=== PATIENT | female | born 1995 | race Caucasian/White ===

== ENCOUNTER 2021-09-22 21:28 | Emergency (ER) | payer MEDICAID, SELFPAY ==
[2021-09-22 21:33] VITALS: BP 122/85; PULSE 116; RESP 18; TEMP 36.7; O2SAT 97; BMI 27.3
[2021-09-22 21:59] LABS: Strep A Nucleic Acid Negative (Negative)
[2021-09-22 22:13] LABS: COVID-19 Test Negative (Negative); IDNOW Serial# 55D5AD1C
[2021-09-22 22:14] LABS: Influenza A Negative (Negative); Influenza B2 Negative (Negative)
--- NOTE | 2021-09-22 23:19 | ED_ITS ---
HPI - General Adult General Chief complaint: General Medical Stated complaint: fever, sore throat,body aches,diarrhea Time Seen by Provider: 09/22/21 21:34 Source: patient Mode of arrival: ambulatory Limitations: no limitations History of Present Illness HPI narrative: 25 yo female here with sore throat x 3 days with subjective fevers. No cough, difficulty breathing. Able to tolerate liquids but food is difficult Related Data Previous Rx's Medication Instructions Recorded doxycycline monohydrate 100 mg 100 mg PO BID #20 cap 09/23/21 capsule prednisone 20 mg tablet 40 mg PO DAILY #10 tab 09/23/21 Allergies Allergy/AdvReac Type Severity Reaction Status Date / Time No Known Allergies Allergy Unverified 01/18/20 19:04 [No Known Allergies*] Review of Systems Review of Systems: Yes all other systems are reviewed and are negative Constitutional: Constitutional: Reports no additional constitutional complaints, Denies body ache(s), Denies chills, Reports fever(s), Denies headache(s) and Denies weakness Eyes: Eyes: Reports no additional eye complaints and Denies change in vision ENT: Reports system reviewed and no additional complaints, except as documented, Denies dizziness, Denies headache(s), Denies nasal congestion, Denies nasal discharge, Denies neck pain and Reports sore throat Cardiovascular: Cardiovascular: Reports no additional cardiovascular complaints, Denies chest pain, Denies leg edema and Denies dyspnea Respiratory: Respiratory: Reports no additional respiratory complaints, Denies cough and Denies dyspnea Gastrointestinal: Gastrointestinal: Reports no additional gastrointestinal complaints, Denies abdominal pain, Denies diarrhea, Denies nausea and Denies vomiting Genitourinary: Genitourinary: Reports no additional female genitourinary complaints and Denies urinary incontinence Musculoskeletal: Musculoskeletal: Reports no additional musculoskeletal complaints, Denies back pain, Denies arthralgias, Denies joint swelling, Denies neck pain, Denies numbness and Denies tingling Integumentary/Breasts: Skin/Breast: Reports system reviewed and no additional complaints, except as docu and Denies rash Neurologic: Reports system reviewed and no additional complaints, except as documented, Denies dizziness, Denies headache(s), Denies numbness, Denies tingling and Denies weakness PMF Past Medical History Attestation statement: The following information was validated with the patient. Source: old records reviewed and nursing notes reviewed Social History Social History Advance Directives: No Physical Exam ED Vital Signs: Vital Signs - 24 hr 09/22/21 21:33 Temperature 98.0 F Pulse Rate 116 H Respiratory Rate 18 Blood Pressure 122/85 Pulse Oximetry 97 BMI result Body Mass Index 27.3 Const General: cooperative, healthy appearing, comfortable and no acute distress Orientation/consciousness: patient oriented x3 Limitations: no limitations HENMT Head: Yes normal to inspection Ears: hearing grossly normal bilaterally and TM's normal bilaterally General nose exam: Normal external nose present Face and sinus: Yes normal facial exam Mouth: Normal oral and palatal mucosa present Teeth and gingiva: dentition normal Throat: Yes uvula midline and Yes abnormal tonsil (bilateral tonsillar erythema/exudate/swelling) Eyes General: appearance normal, both eyes and all related structures Pupils: Equal, round and reactive pupils present Neck Neck: Yes normal visual inspection, Yes full ROM, Yes no lymphadenopathy and Yes no meningeal signs Chest Chest palpation & inspection: normal inspection of the chest Resp Effort & Inspection: normal respiratory effort Auscultation: clear to auscultation bilaterally Cardio Rate: regular rate Rhythm: regular rhythm Peripheral pulses: Peripheral pulses 2+ throughout GI Inspection: Yes normal to inspection Palpation (GI): Soft to palpation and nontender General: Yes no CVA tenderness Back/Spine/Pelvis Back: no CVA tenderness Skin General skin exam: no rashes or lesions noted Neuro General: patient oriented x3 and no meningeal signs Cranial nerves: Yes Equal, round and reactive pupils present Cognition (Neuro): normal cognition Gait exam (Neuro): Normal gait present Extrem General: Yes normal to inspection Course Course Course Narrative: 25 yo female here with sore throat/fever x3 days. On exam patient has bilateral tonsillar erythema with exudate and swelling. Testing for COVID, flu, strep were negative. Will send mono testing. Patient be given Motrin and Decadron Reevaluation(s) Reevaluation #1: Rapid mono is negative. Will send throat culture. Will also send culture for gonorrhea and chlamydia. Patient will be treated prophylactically with ceftriax one 500 mg IM and sent home with doxycycline for 10 days. Will also give prednisone for swelling. Patient is tolerating liquids with no difficulty. Reviewed worrisome signs and symptoms of when to return to the emergency department. Comfortable discharge home. Medical Decision Making MDM Narrative Medical decision making narrative: Strep pharyngitis, mono, gonorrhea tonsillitis Medical Records Medical records reviewed: Yes I reviewed the patient's medical records. Lab Data Lab results reviewed: Yes I reviewed the patient's lab results. Labs: Lab Results 09/22/21 09/22/21 09/22/21 Range/Units 21:40 21:40 21:40 COVID-19 ([facility]) Negative (Negative) COVID-19 Clin Com See Note Monoscreen (Negative) Influenza Type A ([facility]) Negative (Negative) Influenza Type B ([facility]) Negative (Negative) Influenza A & B Note See Note S. pyogenes GrpA [facility] Negative (Negative) 09/22/21 Range/Units 23:59 COVID-19 ([facility]) (Negative) COVID-19 Clin Com Monoscreen Negative (Negative) Influenza Type A ([facility]) (Negative) Influenza Type B ([facility]) (Negative) Influenza A & B Note S. pyogenes GrpA [facility] (Negative) Discharge Plan Discharge Clinical Impression: Acute tonsillitis Patient Disposition: Home, Self-Care Instructions: Tonsillitis (ED) Additional Instructions: [place], rapid strep, covid, flu testing are negative We sent cultures and are treating your prophylactically with antibiotics. You will be called with results if positive in a few days Salt water gargles Motrin or tylenol for pain or fever Prescriptions: New doxycycline monohydrate 100 mg capsule 100 mg PO BID Qty: 20 0RF prednisone 20 mg tablet 40 mg PO DAILY Qty: 10 0RF Referrals: Physician,None [Primary Care Provider] - Stand Alone Forms: Work/School Release
[2021-09-23] MEDS: dexAMETHasone sod phosphate 10 MG/ML VIAL IVPUSH (00:05)
[2021-09-23] MEDS: Ibuprofen Oral Susp 200 MG/10 ML ORAL.SUSP 600 MG PO (00:05)
[2021-09-23 00:20] LABS: Monotest Negative (Negative)
[2021-09-23] MEDS: cefTRIAXone sodium 500 MG, Lidocaine HCl 1 % MPF 1 ML IM (00:56)
[2021-09-23 01:01] VITALS: BP 110/77; PULSE 100; RESP 17; TEMP 37.2; O2SAT 98
[2021-09-26 16:52] LABS: C. Trachomatis RNA TMA, Throat NOT DETECTED (NOT DETECTED); N. gonorrhoeae RNA TMA, Throat NOT DETECTED (NOT DETECTED)
== END 2021-09-23 01:04 | disposition home or self-care (01) ==
LOC: HO.ED 09-23 00:37
PROVIDERS: Emergency Medicine; Nurse Practitioner Family; Emergency Provider Emergency Medicine
DX: J03.90 Acute tonsillitis, unspecified (principal); Z20.822 Contact with and (suspected) exposure to COVID-19
CPT/HCPCS: 36415; 86308; 87071; 87147; 87491; 87502; 87591; 87635; 87651; 96372; 96374; 99283; 99284; J0696; J1100

== ENCOUNTER 2021-09-24 14:06 | Inpatient (IN) | payer MEDICAID, SELFPAY ==
--- NOTE | ~2021-09-24 | XR_ITS ---
EXAMINATION: XR CHEST CLINICAL INFORMATION: Hemoptysis; question pneumonia. COMPARISON: None TECHNIQUE: AP view of the chest was obtained. FINDINGS: No significant abnormality is noted involving the heart, lungs, mediastinum, bony thorax or soft tissues. XR/XR chest 1V IMPRESSION: Unremarkable examination.
--- NOTE | ~2021-09-24 | CT_ITS ---
EXAMINATION: CT SOFT TISSUE NECK WITHOUT CONTRAST CLINICAL INFORMATION: 25-year-old female with sore throat evaluate for peritonsillar abscess COMPARISON: None TECHNIQUE: Helical imaging was performed in the axial plane with generation of coronal and sagittal reformatted images. This CT examination was performed using dose optimization techniques as appropriate, variously including the following: *Automated exposure control *Adjustment of mA and/or kV according to patient size (this includes techniques or standardized protocols for targeted exams where dose is matched to indication/reason for exam; i.e. extremities or head) *Use of iterative reconstruction technique DLP: 325 mGy-cm FINDINGS: The bilateral neck lymphadenopathy is seen. There is palatine tonsillitis with very prominent left more than right tonsil measured approximately 4.6 x 3.9 cm of heterogeneous attenuation but due to the noncontrast technique small abscesses could not be excluded. There is deviation and narrowing of airways toward the right with midline shift. Right palatine tonsil is mildly prominent. The parotid glands are homogeneous in attenuation. The submandibular glands are normal. No contour abnormality or pathologic enhancement is seen within the oral cavity or pharyngeal mucosal space. The laryngeal structures are normal. The parapharyngeal fat is preserved. The carotid sheath vasculature opacify normally. No extra mucosal soft tissue mass or fluid collection is seen. No retropharyngeal fluid collection is seen. The thyroid gland is normal. The superior mediastinum is unremarkable. The lung apices are clear. The mastoid air cells and visualized portions of the paranasal sinuses are well-aerated. The temporomandibular joints are normal. No periapical disease is identified. No osseous abnormalities are seen. The imaged portions of the brain parenchyma are unremarkable. CT/CT soft tissue neck wo con IMPRESSION: A symmetrical tonsillitis with left tonsil significantly enlarged and heterogeneous. No obvious abscesses are visualized. Deviation of the airways and obliteration of the left side of the airways at the level of condyle. Neck lymphadenopathy.
--- NOTE | ~2021-09-24 | NM_ITS ---
EXAMINATION: PULMONARY PERFUSION STUDY CLINICAL INFORMATION: Elevated d-dimer. Coughing blood. Pulmonary embolism. COMPARISON: Chest radiograph from 09/24/2021. CT neck from 09/25/2019. TECHNIQUE: The patient received 2.9 mCi Tc-99m MAA intravenously and a 8-view perfusion study was performed. FINDINGS: Ventilation Images: Not obtained. Perfusion Images: No segmental perfusion defects are present. There is homogeneous distribution of activity bilaterally. There are no focal anatomic appearing perfusion defects present. NM/NM pul perfusion IMPRESSION: Normal radionuclide lung perfusion scan.
[2021-09-24 15:27] VITALS: BP 108/57; PULSE 110; RESP 18; TEMP 36.6; O2SAT 99; BMI 24.2
[2021-09-24 16:35] LABS: Basophils Absolute Auto 0.1 X10*3/uL (0.0-0.2); Basophils Percent Auto 0.4 % (0-2); Eosinophils Percent Auto 0.1 % (0-4); Hematocrit 45.7 % (37.0-47.0); Hemoglobin 15.3 g/dl (12.0-16.0); Imm Gran Pct Auto 1.1 % (0.0-0.4); Lymphocytes Absolute Auto 1.4 X10*3/uL (1.2-4.9); Lymphocytes Percent Auto 7.4 % (20-40); MANUAL DIFF FLAG SCAN; Mean Corpuscular HGB Conc 33.5 g/dl (31.0-35.0); Mean Corpuscular Hemoglobin 30.6 pg (27.0-33.0); Mean Corpuscular Volume 91.4 fL (80.0-98.0); Mean Platelet Volume 12.2 fL (9.4-12.3); Monocytes Absolute Auto 1.8 X10*3/uL (0.1-1.2); Monocytes Percent Auto 9.7 % (2-11); Neutrophils Absolute Auto 15.2 x10*3/uL (2.0-8.3); Neutrophils Percent Auto 81.3 % (45-73); Platelet Count 242 X10*3/uL (160-400); SCAN SMEAR FLAG 1; White Blood Count 18.7 X10*3/uL (4.8-10.8)
[2021-09-24 16:47] LABS: Alanine Aminotransferase 12 U/L (0-31); Albumin Level 4.4 g/dL (3.5-5.0); Alkaline Phosphatase 78 U/L (39-117); Anion Gap 16 (12-20); Aspartate Amino Transferase 13 U/L (5-31); Bilirubin Total 0.8 mg/dL (0.0-1.0); Blood Urea Nitrogen 16 mg/dL (9-16); Calcium 9.5 mg/dL (8.4-10.2); Carbon Dioxide 29 mmol/L (22-29); Chloride 97 mmol/L (96-108); Creatinine Clr Calc Pharmacy 71.7; Estimated Glomerular Filt Rate > 60; Glucose Random 97 mg/dL (60-115); Magnesium 2.2 mg/dL (1.6-2.6); Sodium 138 mmol/L (135-145); Total Protein 8.3 g/dL (6.5-8.0)
[2021-09-24 16:53] LABS: HCG Quantitative < 2 mIU/mL
[2021-09-24 17:02] LABS: SLIDE REVIEW VERIFIED
[2021-09-24 18:42] VITALS: BP 113/68; PULSE 104; RESP 17; TEMP 37.3; O2SAT 100
[2021-09-24 18:45] LABS: INTERNATIONAL NORM RATIO 1.3 (0.9-1.1); Prothrombin Time 14.4 SEC (9.9-13.0)
[2021-09-24 18:48] LABS: D Dimer High Sensitivity 480 NG/ML; Partial Thromboplastin Time 27.5 SEC (24.1-38.0)
[2021-09-24] MEDS: Ibuprofen Oral Susp 200 MG/10 ML ORAL.SUSP 600 MG PO (18:53)
[2021-09-24] MEDS: dexAMETHasone sod phosphate 10 MG/ML VIAL IVPUSH (18:53)
--- NOTE | 2021-09-24 18:58 | ED_ITS ---
HPI - General Adult General Chief complaint: General Medical Stated complaint: spitting up blood Time Seen by Provider: 09/24/21 15:31 Source: patient Mode of arrival: ambulatory Limitations: no limitations History of Present Illness HPI narrative: 25-year-old female presents to the ED for sore throat and coughing up blood. Patient was seen here yesterday for sore throat had negative strep, mono spot, COVID and influenza. Patient is chlamydia and gonorrhea pending. Patient denies any chest pain or shortness of breath. Related Data Previous Rx's Medication Instructions Recorded doxycycline monohydrate 100 mg 100 mg PO BID #20 cap 09/23/21 capsule prednisone 20 mg tablet 40 mg PO DAILY #10 tab 09/23/21 doxycycline monohydrate 25 mg/5 mL 10 ml PO BID 10 Days #200 ml 09/24/21 oral suspension prednisone 5 mg/5 mL oral solution 40 mg (40 mL) PO ONCE 5 Days #200 09/24/21 ml Allergies Allergy/AdvReac Type Severity Reaction Status Date / Time No Known Allergies Allergy Verified 09/24/21 15:26 [No Known Allergies*] Review of Systems Review of Systems: Sore throat. Coughing up blood Yes all other systems are reviewed and are negative PMFSH Social History Social History Advance Directives: No Advance Directives Information Provided: No Physical Exam ED Vital Signs: Vital Signs - 24 hr 09/24/21 15:27 09/24/21 18:42 09/24/21 21:08 Temperature 97.9 F 99.2 F 97.2 F Pulse Rate 110 H 104 H 84 Respiratory Rate 18 17 15 Blood Pressure 108/57 L 113/68 95/59 L Pulse Oximetry 99 100 99 09/24/21 21:42 Temperature Pulse Rate Respiratory Rate 16 Blood Pressure Pulse Oximetry BMI result Body Mass Index 24.2 Const General: cooperative, healthy appearing, comfortable, no acute distress, well developed, alert, awake and Physically active Orientation/consciousness: oriented to time and patient oriented x3 HENMT Head: Yes normal to inspection, Yes No palpable skull fracture present, Yes normocephalic, Yes atraumatic and No abrasion Ears: hearing grossly normal bilaterally, external ears normal, TM's normal bilaterally, TM normal on the right, TM normal on the left, EAC's normal, mastoids normal and no periauricular adenopathy Teeth image: 1. Erythematous and mild swelling of soft palate swelling. left tonsill larger than right tonsil. Throat: Yes uvula midline and Yes abnormal tonsil (Erythematous. Negative for signs of peritonsillar abscess) Eyes General: appearance normal, both eyes and all related structures Neck Neck: Yes normal visual inspection, Yes full ROM, Yes no lymphadenopathy, Yes no meningeal signs, Yes trachea midline, Yes supple, No anterior neck swelling and No tender Chest Chest palpation & inspection: normal inspection of the chest and normal palpation of entire chest wall Resp Effort & Inspection: normal respiratory effort and able to speak in complete sentences Auscultation: clear to auscultation bilaterally Cardio Jugular venous distension: no JVD Heart sounds: S1 normal heart sound present and S2 normal heart sound present GI Inspection: Yes normal to inspection and No abdominal wall ecchymosis Palpation (GI): Soft to palpation, not firm, nontender, no guarding and not rigid General: No CVA tenderness and Yes no CVA tenderness Back/Spine/Pelvis Back: no CVA tenderness, No CVA tenderness and No back tenderness Skin General skin exam: no rashes or lesions noted and elasticity normal Neuro General: oriented to time, patient oriented x3, gait normal, no meningeal signs and CN's II-XI intact bilaterally Cranial nerves: Yes CN's II-XII intact bilaterally Extrem General: Yes normal to inspection and Yes full ROM Psych Appearance: grossly normal, well kempt and not disheveled Course Course Course Narrative: Labs ordered. Due to coughing up blood D-dimer sent. Patient not able to talk and there is drooling. Reevaluation(s) Reevaluation #1: Due to IV contrast shortage hospital's policy presently is to do CT scans without any IV contrast. Soft tissue neck CT dry scan ordered to check for peritonsillar abscess or retropharyngeal abscess although very unlikely due to patient not having any signs of A[employer]LYT[employer] CHEMIST or submandibular swelling or shortness of breath. White blood cell count 18,000 an elevated D-dimer. Decadron ordered. Chest x-ray ordered Time: 19:05 Reevaluation #2: CT scan of neck negative for any obvious peritonsillar abscess, but shows airway narrowing with midline shift. Patient was re-evaluated and now able to speak in full sentencess, feels better, and no longer drooling. Vq scan negative for PE. Spoke with [facility] ENT Freda and he was informed of patient's history, physical exam, labs, and CT scan reading. He states patient presently does not need transfer and can be admitted [place] [facility] [place] observation of 1 to 2 days of IV antibiotics and decadron if worsenns he than recommend transfer. Hospitalist Amanda agree for admission. Antibiotics ordered Time: 23:16 Medical Decision Making MDM Narrative Medical decision making narrative: Tonsillitis Lab Data Result diagrams: 09/24/21 16:18 09/24/21 16:18 Labs: Lab Results 09/24/21 09/24/21 09/24/21 Range/Units 16:18 16:18 18:24 WBC 18.7 H (4.8-10.8) X10*3/uL RBC 5.00 (4.20-5.50) X10*6/uL Hgb 15.3 (12.0-16.0) g/dl Hct 45.7 (37.0-47.0) % MCV 91.4 (80.0-98.0) fL MCH 30.6 (27.0-33.0) pg MCHC 33.5 (31.0-35.0) g/dl RDW 13.0 (11.0-16.0) % Plt Count 242 (160-400) X10*3/uL MPV 12.2 (9.4-12.3) fL Immature Gran % (Auto) 1.1 H (0.0-0.4) % Neut % (Auto) 81.3 H (45-73) % Lymph % (Auto) 7.4 L (20-40) % [place] % (Auto) 9.7 (2-11) % Eos % (Auto) 0.1 (0-4) % Baso % (Auto) 0.4 (0-2) % Lymph # (Auto) 1.4 (1.2-4.9) X10*3/uL [place] # (Auto) 1.8 H (0.1-1.2) X10*3/uL Eos # (Auto) 0.0 (0.0-0.4) X10*3/uL Baso # (Auto) 0.1 (0.0-0.2) X10*3/uL Abs Immat Gran (auto) 0.20 H (0.00-0.03) X10*3/uL Absolute Neuts (auto) 15.2 H (2.0-8.3) x10*3/uL Absolute Nucleated RBC 0.000 (0.0-0.012) X10*3/uL Nucleated RBC % (auto) 0.0 (0.0-0.2) /100WBC Smear Tech's Comments VERIFIED PT 14.4 H (9.9-13.0) SEC INR 1.3 H (0.9-1.1) APTT 27.5 (24.1-38.0) SEC D-Dimer High Sensitivty 480 NG/ML Sodium 138 (135-145) mmol/L Potassium 4.0 (3.3-5.1) mmol/L Chloride 97 (96-108) mmol/L Carbon Dioxide 29 (22-29) mmol/L Anion Gap 16 (12-20) BUN 16 (9-16) mg/dL Creatinine 0.95 (0.5-1.4) mg/dL Estim Creat Clear Calc 71.7 Estimated GFR > 60 Random Glucose 97 (60-115) mg/dL Lactic Acid (0.5-2.0) mmol/L Calcium 9.5 (8.4-10.2) mg/dL Magnesium 2.2 (1.6-2.6) mg/dL Total Bilirubin 0.8 (0.0-1.0) mg/dL AST 13 (5-31) U/L ALT 12 (0-31) U/L Alkaline Phosphatase 78 (39-117) U/L Total Protein 8.3 H (6.5-8.0) g/dL Albumin 4.4 (3.5-5.0) g/dL Beta HCG, Quant < 2 mIU/mL 09/24/21 Range/Units 21:56 WBC (4.8-10.8) X10*3/uL RBC (4.20-5.50) X10*6/uL Hgb (12.0-16.0) g/dl Hct (37.0-47.0) % MCV (80.0-98.0) fL MCH (27.0-33.0) pg MCHC (31.0-35.0) g/dl RDW (11.0-16.0) % Plt Count (160-400) X10*3/uL MPV (9.4-12.3) fL Immature Gran % (Auto) (0.0-0.4) % Neut % (Auto) (45-73) % Lymph % (Auto) (20-40) % [place] % (Auto) (2-11) % Eos % (Auto) (0-4) % Baso % (Auto) (0-2) % Lymph # (Auto) (1.2-4.9) X10*3/uL [place] # (Auto) (0.1-1.2) X10*3/uL Eos # (Auto) (0.0-0.4) X10*3/uL Baso # (Auto) (0.0-0.2) X10*3/uL Abs Immat Gran (auto) (0.00-0.03) X10*3/uL Absolute Neuts (auto) (2.0-8.3) x10*3/uL Absolute Nucleated RBC (0.0-0.012) X10*3/uL Nucleated RBC % (auto) (0.0-0.2) /100WBC Smear Tech's Comments PT (9.9-13.0) SEC INR (0.9-1.1) APTT (24.1-38.0) SEC D-Dimer High Sensitivty NG/ML Sodium (135-145) mmol/L Potassium (3.3-5.1) mmol/L Chloride (96-108) mmol/L Carbon Dioxide (22-29) mmol/L Anion Gap (12-20) BUN (9-16) mg/dL Creatinine (0.5-1.4) mg/dL Estim Creat Clear Calc Estimated GFR Random Glucose (60-115) mg/dL Lactic Acid 0.7 (0.5-2.0) mmol/L Calcium (8.4-10.2) mg/dL Magnesium (1.6-2.6) mg/dL Total Bilirubin (0.0-1.0) mg/dL AST (5-31) U/L ALT (0-31) U/L Alkaline Phosphatase (39-117) U/L Total Protein (6.5-8.0) g/dL Albumin (3.5-5.0) g/dL Beta HCG, Quant mIU/mL Discharge Plan Discharge Clinical Impression: Tonsillitis Patient Disposition: Admitted As Inpatient
[2021-09-24 21:08] VITALS: BP 95/59; PULSE 84; RESP 15; TEMP 36.2; O2SAT 99
[2021-09-24 21:42] VITALS: RESP 16
[2021-09-24] MEDS: cefTRIAXone sodium 1 GM in 0.9 % Sodium Chloride 50 ML IV (21:42)
[2021-09-24 22:10] LABS: Lactic Acid 0.7 mmol/L (0.5-2.0)
[2021-09-24] MEDS: 0.9 % Sodium Chloride 1,000 ML 999 ML IV ×2 (22:14→22:15)
--- NOTE | 2021-09-24 22:54 | PM.IMHP ---
History of Present Illness Date of Service: 09/24/21 Chief Complaint: Thorat pain 25-year-old female with no significant past medical history presented to the hospital with a chief complaint of sore throat, difficulty speaking, coughing of streaks of blood. Patient reports that symptoms have been going on for the past few days; today she went to the clinic and had negative strep throat, negative Monospot, negative influenza and COVID-19. Chlamydia and gonorrhea pending. Patient denies any shortness of breath. Patient reports that her symptoms have been gradually worsening; have throat pain and difficulty speaking. Denies any nausea vomiting Denies any cough or sputum production. Review of all other systems is negative except mentioned above ER course: Per ER team patient breathing comfortably; utilize midline; tonsils are erythematous; given ceftriaxone; discussed with ENT at [facility]- mentioned patient can be admitted to [facility] and to continue antibiotics and steroids, if no improvement to consider transfer later. FORMERLY [facility], [facility] Social History Advance Directives: No Advance Directives Information Provided: No Meds Allergies Allergy/AdvReac Type Severity Reaction Status Date / Time No Known Allergies Allergy Verified 09/24/21 15:26 [No Known Allergies*] Active Medications: Current Medications Enoxaparin Sodium (Enoxaparin Sodium 40 Mg/0.4 Ml Syringe) 40 mg SUBCUT Q24H RADHA Sodium Chloride (0.9 % Sodium Chloride Flush 3 Ml Syringe) 3 ml IVFLUSH QSHIFT [facility] Physical Exam Vital Signs and Narrative: Vital Signs: Last Vital Signs Temp 97.2 F 09/24/21 21:08 Pulse 84 09/24/21 21:08 Resp 16 09/24/21 21:42 BP 95/59 L 09/24/21 21:08 Pulse Ox 99 09/24/21 21:08 BMI result Body Mass Index 24.2 Gen: Appears be in no acute distress HEENT: NCAT, Moist mucosa. No stridor; tonsils enlarged; hyperemia chemicals over the tonsils. Pulmonary: Vesicular breath sounds, fair air entry CVS: Normal S1-S2 Abdomen: BS+, Soft, Nontender Extremities: Warm well perfused Neuro: Alert and awake. Grossly nonfocal. Voice is clear. Results Labs CBC and Chem 7: 09/24/21 16:18 09/24/21 16:18 Labs: Laboratory Results - last 24 hr 09/24/21 09/24/21 09/24/21 16:18 16:18 18:24 MCV 91.4 MCH 30.6 MCHC 33.5 RDW 13.0 Plt Count 242 MPV 12.2 Immature Gran % (Auto) 1.1 H Neut % (Auto) 81.3 H Lymph % (Auto) 7.4 L [place] % (Auto) 9.7 Eos % (Auto) 0.1 Baso % (Auto) 0.4 Lymph # (Auto) 1.4 [place] # (Auto) 1.8 H Eos # (Auto) 0.0 Baso # (Auto) 0.1 Abs Immat Gran (auto) 0.20 H Absolute Neuts (auto) 15.2 H Absolute Nucleated RBC 0.000 Nucleated RBC % (auto) 0.0 Smear Tech's Comments VERIFIED PT 14.4 H INR 1.3 H APTT 27.5 D-Dimer High Sensitivty 480 Anion Gap 16 Estim Creat Clear Calc 71.7 Estimated GFR > 60 Random Glucose 97 Lactic Acid Calcium 9.5 Magnesium 2.2 Total Bilirubin 0.8 AST 13 ALT 12 Alkaline Phosphatase 78 Total Protein 8.3 H Albumin 4.4 Beta HCG, Quant < 2 09/24/21 21:56 MCV MCH MCHC RDW Plt Count MPV Immature Gran % (Auto) Neut % (Auto) Lymph % (Auto) [place] % (Auto) Eos % (Auto) Baso % (Auto) Lymph # (Auto) [place] # (Auto) Eos # (Auto) Baso # (Auto) Abs Immat Gran (auto) Absolute Neuts (auto) Absolute Nucleated RBC Nucleated RBC % (auto) Smear Tech's Comments PT INR APTT D-Dimer High Sensitivty Anion Gap Estim Creat Clear Calc Estimated GFR Random Glucose Lactic Acid 0.7 Calcium Magnesium Total Bilirubin AST ALT Alkaline Phosphatase Total Protein Albumin Beta HCG, Quant Imaging Radiologist's Impressions: Impressions Chest X-Ray 09/24/21 19:08 IMPRESSION: Unremarkable examination. Soft Tissue Neck CT 09/24/21 19:09 IMPRESSION: A symmetrical tonsillitis with left tonsil significantly enlarged and heterogeneous. No obvious abscesses are visualized. Deviation of the airways and obliteration of the left side of the airways at the level of condyle. Neck lymphadenopathy. Pulmonary Perfusion Imaging 09/24/21 20:34 IMPRESSION: Normal radionuclide lung perfusion scan. Assessment and Plan (1) Tonsillitis: Status: Acute Plan 25-year-old female with no significant past medical history presented to the hospital with a chief complaint of sore throat, difficulty speaking, coughing of streaks of blood. Noted to have following Severe tonsillitis: CT scan showed symmetrical tonsillitis with left tonsil significantly enlarged; deviation of the airways and obliteration of the left side of the airways at the level of condyle. Next lymphadenopathy. NPO Gentle IV fluids pain control Decadron 6 mg IV b.i.d. Continue Unasyn IV q.6h Id consult ER team spoke to at [facility]-> mentioned no acute need for transfer; recommended admission to H and see and to continue antibiotics; and if not improving clinically in The next 1-2 days; then consider transfer. DVT prophylaxis: Lovenox Code status: Full code Quality Stroke Does the patient have a stroke diagnosis?: No VTE Prior VTE?: No VTE Risk Level:: Medical - moderate - high VTE Device Contraindication: Treatment Not Indicated VTE Drug Contraindication: N/A - Med Ordered
[2021-09-25] MEDS: Ampicillin Sodium/Sulbactam Na 3 GM in 0.9 % Sodium Chloride 100 ML IV ×4 (01:00→18:02)
[2021-09-25] MEDS: Enoxaparin Sodium 40 MG/0.4 ML SYRINGE SUBCUT (01:02)
[2021-09-25] MEDS: Dextrose 5 % and 0.9 % NaCl 1,000 ML 100 ML IVCONT ×3 (01:37→18:09)
[2021-09-25 02:46] VITALS: BP 99/66; PULSE 70; RESP 16; TEMP 36.6; O2SAT 98
--- NOTE | 2021-09-25 06:58 | PC.NURSE ---
moved to bed emc5 for rn cardiac, ambulating w steady gait, offers no new complaints, sts feeling better than when she came in. wctm for dc needs.
[2021-09-25 07:24] LABS: Basophils Percent Auto 0.2 % (0-2); Hemoglobin 11.9 g/dl (12.0-16.0); Imm Gran Abs Auto 0.43 X10*3/uL (0.00-0.03); Imm Gran Pct Auto 2.8 % (0.0-0.4); Lymphocytes Absolute Auto 1.5 X10*3/uL (1.2-4.9); Lymphocytes Percent Auto 9.9 % (20-40); MANUAL DIFF FLAG SCAN; Mean Corpuscular HGB Conc 33.1 g/dl (31.0-35.0); Mean Corpuscular Hemoglobin 30.7 pg (27.0-33.0); Mean Platelet Volume 11.8 fL (9.4-12.3); Monocytes Absolute Auto 1.6 X10*3/uL (0.1-1.2); Monocytes Percent Auto 10.2 % (2-11); Neutrophils Absolute Auto 11.7 x10*3/uL (2.0-8.3); Neutrophils Percent Auto 76.9 % (45-73); Platelet Count 215 X10*3/uL (160-400); Red Blood Count 3.87 X10*6/uL (4.20-5.50); Red Cell Distribution Width 13.2 % (11.0-16.0); SCAN SMEAR FLAG 1; White Blood Count 15.2 X10*3/uL (4.8-10.8)
[2021-09-25 07:43] LABS: Anion Gap 12 (12-20); Blood Urea Nitrogen 10 mg/dL (9-16); Carbon Dioxide 27 mmol/L (22-29); Chloride 104 mmol/L (96-108); Creatinine Clr Calc Pharmacy 100.2; Estimated Glomerular Filt Rate > 60; Glucose Random 136 mg/dL (60-115); Potassium 4.2 mmol/L (3.3-5.1); Sodium 139 mmol/L (135-145)
[2021-09-25 08:00] LABS: Calcium 8.5 mg/dL (8.4-10.2)
[2021-09-25 08:09] LABS: SLIDE REVIEW VERIFIED
--- NOTE | 2021-09-25 08:42 | PHA.MEDREC ---
Pharmacy Consult ? Medication Reconciliation Pharmacy has completed the medication reconciliation. Patient reports not medications. Patient reports she was given a script for 2 liquid medications but she did not start them yet. The Medication were Doxycycline and prednisone. Cheryle Ferro, MayelaD
[2021-09-25] MEDS: dexAMETHasone sod phosphate 4 MG/ML VIAL 6 MG IVPUSH ×2 (09:51→20:46)
[2021-09-25 09:57] VITALS: BP 120/65; PULSE 60; RESP 16; TEMP 36.6
--- NOTE | 2021-09-25 09:59 | PC.NURSE ---
pt resting comfortably, no drooling or dysphonia noted. pt denies discomfort. awaiting bed assignment
[2021-09-25 11:19] VITALS: BP 180/86; PULSE 88; RESP 18; TEMP 36.2
--- NOTE | 2021-09-25 11:21 | PC.NURSE ---
20 ga iv placed r fa. pt resting comfortably, has been medicated for 8/10 pain to r foot awaiting bed assignment.
--- NOTE | 2021-09-25 11:57 | P.PNIM_ITS ---
Subjective Subjective Date of Service: 09/25/21 Interval History: Patient feeling significantly better, complaining of mild sore throat, denies shortness of breath, no fevers no chills denies headache lightheadedness dizziness no sinus pressure, no earache no acute events overnight. Review of Systems General no fevers no chills CVS no chest pain, no palpitation Respiratory no cough, no shortness of breath Review of Systems: Yes all other systems are reviewed and are negative Physical Exam Vital Signs: Vital Signs: Last Vital Signs Temp 97.2 F 09/25/21 11:19 Pulse 88 09/25/21 11:19 Resp 18 09/25/21 11:19 BP 180/86 H 09/25/21 11:19 Pulse Ox 98 09/25/21 02:46 BMI result Body Mass Index 24.2 Const: Other: General awake alert x3,no acute distress. HEENT large tonsil left greater than right mild hyperemia , no stridor, normal tongue Neck no cervical or mandibular lymphadenopathy, CVS regular rate rhythm, Respiratory lungs clear to auscultation, no respiratory distress, no wheeze Gastrointestinal abdomen soft, nontender, bowel sounds audible Extremities no edema. Neuro nonfocal Skin no rash Psych appropriate affect Objective Data Active Medications Acetaminophen (Acetaminophen 325 Mg Tablet) 650 mg PO Q6H PRN PRN Reason: Pain, Mild (Pain Scale 1-3) Albuterol/Ipratropium (Albuterol/Iprat 2.5/0.5mg 3 Ml Ampul.Neb) 3 ml INHALE Q4H PRN PRN Reason: Shortness of Breath/Wheezing Dexamethasone Sodium Phosphate (Dexamethasone Sod Phosphate 4 Mg/Ml Vial) 6 mg IVPUSH BID [facility] Last Admin: 09/25/21 09:51 Dose: 6 mg Documented by: SAGRARIO Enoxaparin Sodium (Enoxaparin Sodium 40 Mg/0.4 Ml Syringe) 40 mg SUBCUT Q24H [facility] Last Admin: 09/25/21 01:02 Dose: 40 mg Documented by: RANJITH Dextrose/Sodium Chloride (D5ns) 1,000 mls @ 100 mls/hr IVCONT .Q10H [facility] Last Admin: 09/25/21 09:52 Dose: 100 mls/hr Documented by: SAGRARIO Ampicillin Sodium/Sulbactam (Sodium 3 gm/ Sodium Chloride) 100 mls @ 200 mls/hr IV Q6H [facility] Last Admin: 09/25/21 11:46 Dose: 200 mls/hr Documented by: DANI Ketorolac Tromethamine (Ketorolac Tromethamine 30 Mg/Ml Vial) 15 mg IVPUSH Q6H PRN PRN Reason: Pain, Mild (Pain Scale 1-3) Stop: 09/29/21 22:49 Melatonin (Melatonin 3 Mg Tablet) 6 mg PO BEDTIME PRN PRN Reason: Insomnia Senna (Sennosides 8.6 Mg Tablet) 17.2 mg PO BEDTIME PRN PRN Reason: Constipation Sodium Chloride (0.9 % Sodium Chloride Flush 3 Ml Syringe) 3 ml IVFLUSH QSHIFT [facility] Last Admin: 09/25/21 11:47 Dose: Not Given Documented by: DANI Non-Admin Reason: IV Running Labs CBC & Chem 7: 09/25/21 07:15 09/25/21 07:15 Labs: Laboratory Results - last 24 hr 09/24/21 09/24/21 09/24/21 16:18 16:18 18:24 MCV 91.4 MCH 30.6 MCHC 33.5 RDW 13.0 Plt Count 242 MPV 12.2 Immature Gran % (Auto) 1.1 H Neut % (Auto) 81.3 H Lymph % (Auto) 7.4 L [place] % (Auto) 9.7 Eos % (Auto) 0.1 Baso % (Auto) 0.4 Lymph # (Auto) 1.4 [place] # (Auto) 1.8 H Eos # (Auto) 0.0 Baso # (Auto) 0.1 Abs Immat Gran (auto) 0.20 H Absolute Neuts (auto) 15.2 H Absolute Nucleated RBC 0.000 Nucleated RBC % (auto) 0.0 Smear Tech's Comments VERIFIED PT 14.4 H INR 1.3 H APTT 27.5 D-Dimer High Sensitivty 480 Anion Gap 16 Estim Creat Clear Calc 71.7 Estimated GFR > 60 Random Glucose 97 Lactic Acid Calcium 9.5 Magnesium 2.2 Total Bilirubin 0.8 AST 13 ALT 12 Alkaline Phosphatase 78 Total Protein 8.3 H Albumin 4.4 Beta HCG, Quant < 2 09/24/21 09/25/21 09/25/21 21:56 07:15 07:15 MCV 93.0 MCH 30.7 MCHC 33.1 RDW 13.2 Plt Count 215 MPV 11.8 Immature Gran % (Auto) 2.8 H Neut % (Auto) 76.9 H Lymph % (Auto) 9.9 L [place] % (Auto) 10.2 Eos % (Auto) 0.0 Baso % (Auto) 0.2 Lymph # (Auto) 1.5 [place] # (Auto) 1.6 H Eos # (Auto) 0.0 Baso # (Auto) 0.0 Abs Immat Gran (auto) 0.43 H Absolute Neuts (auto) 11.7 H Absolute Nucleated RBC 0.000 Nucleated RBC % (auto) 0.0 Smear Tech's Comments VERIFIED PT INR APTT D-Dimer High Sensitivty Anion Gap 12 Estim Creat Clear Calc 100.2 Estimated GFR > 60 Random Glucose 136 H Lactic Acid 0.7 Calcium 8.5 D Magnesium Total Bilirubin AST ALT Alkaline Phosphatase Total Protein Albumin Beta HCG, Quant Assessment and Plan (1) Tonsillitis: Status: Acute Plan 25-year-old female with no significant past medical history presented to the hospital with a chief complaint of sore throat, difficulty speaking, coughing of streaks of blood.? Severe acute tonsillitis with sepsis On admission noted to be tachycardic, afebrile, CBC showed leukocytosis Feeling better, no overnight fever chills, no shortness of breath, WBC trending down, blood culture pending, throat culture grew no streptococci CT Neck showed? symmetrical tonsillitis with left tonsil significantly enlarged; deviation of the airways and obliteration of the left side of the airways at the level of condyle.? On IV Decadron 6 mg b.i.d. and IV Unasyn q.[address] on clear liquid diet, and gradually advanced as symptoms improves, continue IV fluid, follow blood cultures. DVT prophylaxis:? Lovenox Code status:? Full code Patient need continued inpatient hospitalization due to persistent sore throat with significant tonsillitis unable to tolerate diet requiring IV antibiotics and IV steroid. Quality Stroke Does the patient have a stroke diagnosis?: No VTE Prior VTE?: No VTE Risk Level:: Medical - moderate - high VTE Device Contraindication: Treatment Not Indicated VTE Drug Contraindication: N/A - Med Ordered
--- NOTE | 2021-09-25 13:12 | MHC.CM.PN ---
Female 25 DX Tonsillitis She lives with room mates. She is independent with all functional mobility. She has been vaccinated with Modera x2. She does not have a PCP. The list of [facility] providers was given to the patient. The patient received education re HCP. She declined the offer to document a HCP. DP home no services family will provide transportation.
[2021-09-25 15:35] LABS: COVID-19 Test Negative (Negative)
[2021-09-25 20:45] VITALS: BP 112/69; PULSE 58; RESP 14; TEMP 36.6; O2SAT 100
[2021-09-26] MEDS: Enoxaparin Sodium 40 MG/0.4 ML SYRINGE SUBCUT (00:22)
[2021-09-26] MEDS: 0.9 % Sodium Chloride Flush 3 ML SYRINGE IVFLUSH ×2 (00:22→09:01)
[2021-09-26] MEDS: Ampicillin Sodium/Sulbactam Na 3 GM in 0.9 % Sodium Chloride 100 ML IV ×2 (00:24→05:50)
--- NOTE | 2021-09-26 00:29 | PC.NURSE ---
patient sleeping. awakens easily to verbal stimuli. skin pwd, resp even and non labored. speaking in full, clear sentences. denies pain. tolerated a milk shake. aware of plan of care
[2021-09-26] MEDS: Dextrose 5 % and 0.9 % NaCl 1,000 ML 100 ML IVCONT (04:41)
[2021-09-26 05:46] VITALS: BP 120/76; PULSE 65; RESP 15; O2SAT 99
[2021-09-26] MEDS: dexAMETHasone sod phosphate 4 MG/ML VIAL 6 MG IVPUSH (09:01)
--- NOTE | 2021-09-26 10:28 | PC.NURSE ---
PT UP OOB BY SELF TO BATHROOM, STEADY GAIT, MOVING ALL EXTREMITIES, A+OX4, TOLERATED LIQUID DIET FOR BREAKFAST, NO CHOKING OR DIFF SWALLOWING AT THIS TIME.
--- NOTE | 2021-09-26 11:14 | MHC.CM.PN ---
PT WILL DC HOME TODAY WITH NO SERVICES
--- NOTE | 2021-09-26 15:27 | P.DS_ITS ---
DS: Providers Provider Date of Service: 09/26/21 Date of admission: 09/24/21 22:50 Primary care physician: None Physician Consults: 09/24/21 22:50 Consult to Infectious Diseases Routine Consulting Provider: Maylin Virk Reason for consultation: tonsillitis DS: Diagnosis Discharge Diagnosis (1) Tonsillitis: Status: Acute DS: Summary Hospital Course Hospital Course: Chief Complaint: Thorat pain ? 25-year-old female with no significant past medical history presented to the hospital with a chief complaint of sore throat, difficulty speaking, coughing of streaks of blood.? Patient reports that symptoms have been going on for the past few days;? today she went to the clinic and had negative strep throat, negative Monospot, negative influenza and COVID-19.? Chlamydia and gonorrhea pending.? Patient denies any shortness of breath.? Patient reports that her symptoms have been gradually worsening; have throat pain and difficulty speaking.? Denies any nausea vomiting Denies any cough or sputum production.? Review of all other systems is negative except mentioned above ER course: Per ER team? patient breathing comfortably; utilize midline; tonsils are erythematous; given ceftriaxone; discussed with ENT at [facility]- mentioned patient can be admitted to [facility] and to continue antibiotics and steroids, if no improvement to consider transfer later. Hospital course 25-year-old female with no significant past medical history presented to the hospital with a chief complaint of sore throat, difficulty speaking, coughing up streaks of blood, and diagnosed to have Severe acute tonsillitis with sepsis,On admission noted to be tachycardic, afebrile, CBC showed leukocytosis, patient treated with IV fluids,IV Unasyn q.6 hours and IV Decadron 6 mg twice daily, CT Neck showed? symmetrical tonsillitis with left tonsil significantly enlarged; deviation of the airways and obliteration of the left side of the airways at the level of condyle, patient responded well to above treatment, WBC improved, sore throat resolved diet gradually advanced patient tolerating it well, since patient is hemodynamically stable with no fever, chills, no shortness of breath, blood cultures x2 is negative, throat cultures grew no streptococci , therefore patient is being discharged home on Augmentin and Decadron and recommended to take soft diet, drink plenty of fluids, and rinse mouth after each meal. Time Spent with Patient Time attestation: Total time spent providing and/or coordinating discharge services: Discharge coordination time: Greater than 30 minutes Quality: Safe Use of Opioids Does Pt have an Active Cancer Diagnosis on the Problem List?: No Quality: Stroke Does the patient have a stroke diagnosis?: No Physical Exam 2 Vital Signs: Vital Signs: Last Vital Signs Temp 97.8 F 09/25/21 20:45 Pulse 65 09/26/21 05:46 Resp 15 09/26/21 05:46 BP 120/76 09/26/21 05:46 Pulse Ox 99 09/26/21 05:46 BMI result Body Mass Index 24.2 Const: Other: General awake alert x3,no acute distress. Oral cavity moist mucous membrane and large left tonsil, no pus pockets noticed no significant hyperemia, uvula midline, tongue normal Neck no lymphadenopathy CVS regular rate rhythm, Respiratory lungs clear to auscultation, no respiratory distress, no wheeze, no rhonchi. Gastrointestinal abdomen soft, nontender, bowel sounds audible Extremities no edema. Neuro nonfocal Skin no rash DS: Data Data Completed and Pending Labs on day of discharge: Laboratory Results - last 24 hr 09/25/21 15:05 COVID-19 ([facility]) Negative COVID-19 Clin Com See Note Preliminary micro results at discharge 09/24/21 18:24 Blood Culture - Preliminary Blood - Venous No growth after 24 hours. 09/24/21 16:19 Blood Culture - Preliminary Blood - Venous No growth after 24 hours. Discharge Plan Discharge Patient Disposition: Home, Self-Care Discharge Diagnosis: Acute tonsillitis midline shift of airway towards right Referrals: Physician,None [Primary Care Provider] - 1 Week Discharge Medications: New amoxicillin-pot clavulanate 875-125 mg tablet 1 tab PO BID Qty: 14 0RF dexamethasone [Decadron] 6 mg tablet 6 mg PO DAILY Qty: 5 0RF Discharge Orders: Discharge Order (Routine); Ordered 09/26/21 Ordered By: Lanny Casas Diet: advance to usual diet Activity on Discharge: As tolerated Stand Alone Forms: Patient Portal Discharge page, Work/School Release Care Plan Goals: Acute tonsillitis take Augmentin for 7 days twice daily, take Decadron for 5 more days, rinse mouth after each meal and take soft diet for few days, return to check with worsening pain, fever, chills or difficulty swallowing. Health Concerns: As above Plan of Treatment: Outpatient follow-up with primary care physician 7-10 Assessment: As per discharge summary
--- NOTE | 2021-09-26 15:49 | W.PM.IDCN ---
History of Present Illness Data of Consult Service Date: 09/26/21 Requesting physician: Lanny Casas Primary Care Provider: None Physician HPI Reason for consult: throat pain She presents with throat pain and inability to swallow. She was seen in ER earlier in week but couldnt swallow pills so hasnt taken antibiotics. She is strep and COVID negative Review of Systems Review of Systems: Yes all other systems are reviewed and are negative [facility] Family History Family history: reviewed and not pertinent Meds Allergies Allergy/AdvReac Type Severity Reaction Status Date / Time No Known Allergies Allergy Verified 09/24/21 15:26 [No Known Allergies*] Active Medications: Current Medications Acetaminophen (Acetaminophen 325 Mg Tablet) 650 mg PO Q6H PRN PRN Reason: Pain, Mild (Pain Scale 1-3) Albuterol/Ipratropium (Albuterol/Iprat 2.5/0.5mg 3 Ml Ampul.Neb) 3 ml INHALE Q4H PRN PRN Reason: Shortness of Breath/Wheezing Dexamethasone Sodium Phosphate (Dexamethasone Sod Phosphate 4 Mg/Ml Vial) 6 mg IVPUSH BID [facility] Last Admin: 09/26/21 09:01 Dose: 6 mg Documented by: Enoxaparin Sodium (Enoxaparin Sodium 40 Mg/0.4 Ml Syringe) 40 mg SUBCUT Q24H [facility] Last Admin: 09/26/21 00:22 Dose: 40 mg Documented by: Dextrose/Sodium Chloride (D5ns) 1,000 mls @ 100 mls/hr IVCONT .Q10H [facility] Last Infusion: 09/26/21 08:55 Dose: 100 mls/hr Documented by: Ampicillin Sodium/Sulbactam (Sodium 3 gm/ Sodium Chloride) 100 mls @ 200 mls/hr IV Q6H [facility] Last Infusion: 09/26/21 06:30 Dose: Infused Documented by: Ketorolac Tromethamine (Ketorolac Tromethamine 30 Mg/Ml Vial) 15 mg IVPUSH Q6H PRN PRN Reason: Pain, Mild (Pain Scale 1-3) Stop: 09/29/21 22:49 Melatonin (Melatonin 3 Mg Tablet) 6 mg PO BEDTIME PRN PRN Reason: Insomnia Senna (Sennosides 8.6 Mg Tablet) 17.2 mg PO BEDTIME PRN PRN Reason: Constipation Sodium Chloride (0.9 % Sodium Chloride Flush 3 Ml Syringe) 3 ml IVFLUSH QSHIFT [facility] Last Admin: 09/26/21 09:01 Dose: 3 ml Documented by: Physical Exam Vital Signs: Vital Signs: Last Vital Signs Temp 97.8 F 09/25/21 20:45 Pulse 65 09/26/21 05:46 Resp 15 09/26/21 05:46 BP 120/76 09/26/21 05:46 Pulse Ox 99 09/26/21 05:46 BMI result Body Mass Index 24.2 Const: General: cooperative HEENT: Other: mild tonsillar swelling Eyes: General: appearance normal, both eyes and all related structures Pupils: Equal, round and reactive pupils present Resp: Effort & Inspection: normal respiratory effort Cardio: Rate: regular rate Rhythm: regular rhythm GI: Palpation (GI): Soft to palpation and nontender Neuro: Cranial nerves: Yes Equal, round and reactive pupils present Extrem: General: Yes normal to inspection Results Labs CBC & Chem 7: 09/25/21 07:15 09/25/21 07:15 Microbiology Microbiology Results: Microbiology 09/24/21 18:24 Blood - Venous Blood Culture - Preliminary No growth after 24 hours. 09/24/21 16:19 Blood - Venous Blood Culture - Preliminary No growth after 24 hours. Assessment and Plan (1) Tonsillitis: Status: Acute She has tonsillar discomfort and unable to take po well. She has possible staph,strep EBV Plan Continue antibiotics Unasyn or Clindamycin Po Augmentin 10 d when po well. Check HIV
== END 2021-09-26 17:39 | disposition home or self-care (01) | DRG 720 ==
LOC: HO.ED 20:40 → HO.EDOVER 23:20
PROVIDERS: Physician Assistant; Physician Assistant Medical; Admitting Provider Hospitalist; Emergency Provider Emergency Medicine; Visit Provider Hospitalist
DX: A41.9 Sepsis, unspecified organism (principal); R04.2 Hemoptysis; J03.00 Acute streptococcal tonsillitis, unspecified; Z20.822 Contact with and (suspected) exposure to COVID-19
CPT/HCPCS: 36415; 70490; 71045; 78580; 80048; 80053; 83605; 83735; 84702; 85025; 85379; 85610; 85730; 87040; 87635; 96361; 96365; 99284; 99285; A9540; J0295; J0696; J1100; J1650